=== PATIENT | male | born 1960 | race Caucasian/White ===

== ENCOUNTER 2021-03-04 21:08 | Observation (INO) | payer BC, SELFPAY ==
[2021-03-04 21:09] VITALS: BP 131/76; PULSE 134; RESP 17; TEMP 39.4; O2SAT 97; BMI 23.8
[2021-03-04 21:13] VITALS: BP 131/76; PULSE 134; RESP 17; TEMP 39.4; O2SAT 97
[2021-03-04 21:46] LABS: Absolute Lymphocyte Count 0.41 X10^3/uL (0.83-4.51); Absolute Neutrophil Count 10.5 X10^3/uL (2.0-7.7); Basophil# 0.02 X10^3/uL; Basophil% 0.2 % (0-1); Hematocrit 37.7 % (40-54); Hemoglobin 13.2 g/dL (13.0-16.5); Lymphocyte # 0.41 X10^3/ul (0.83-4.51); Lymphocyte % 3.5 % (19-41); Mean Corpuscular Hgb 30.4 pg (27.0-32.0); Mean Corpuscular Volume 86.9 fL (80-94); Mean Platelet Vol. 8.8 fl (6.2-12.0); Monocyte# 0.72 X10^3/uL; Monocyte% 6.1 % (0-10); NRBC Flagged by Analyzer 0 % (0-5); Neutrophil # 10.46 X10^3/uL (2.7-7.7); Neutrophil % 89.2 % (47-70); POSITIVE DIFFERENTIAL YES; Platelet Count 136 K/mm3 (150-450); RBC Distribution Width CV 13.2 % (11.6-14.6); RBC Distribution Width SD 41.8 fl (35.1-43.9); Red Blood Count 4.34 M/mm3 (4.6-6.2); White Blood Count 11.7 K/mm3 (4.4-11.0)
[2021-03-04 21:49] LABS: Differential Indicated SCAN CRITERIA MET
[2021-03-04 21:54] LABS: Anion Gap 8 (5-15); BUN 12 mg/dL (7-18); BUN/Creat Ratio 18.8 RATIO (10-20); Calcium,Total 8.3 mg/dL (8.5-10.1); Chloride 93 mmol/L (98-107); Creatinine, Serum 0.64 mg/dL (0.70-1.30); EST Glomerular Filtration Rate 136 mL/min (>60); Est Glom Filt Rate - Afr Amer 164 mL/min (>60); Estimated Creatinine Clearance 114.76 ml/min; Glucose 103 mg/dL (74-106); Potassium 3.9 mmol/L (3.5-5.1); Sodium Level 125 mmol/L (136-145)
[2021-03-04 22:08] LABS: Anisocytosis RARE; Platelet Estimate SLT DEC (ADEQ); Red Cell Morphology N CHROM NORMAL (NORM C&C)
[2021-03-04 22:27] LABS: Bacteria 0 SEEN /hpf (None Seen); Mucous, Urine 0 SEEN /hpf (<or=2+); Red Blood Cells-Urine 0 SEEN /hpf (0-5)
--- NOTE | 2021-03-04 22:30 | CT_ITS ---
STUDY: CT ABDOMEN AND PELVIS WITH CONTRAST REASON FOR EXAM: Male, 61 years old. abdominal pain RADIATION DOSAGE (If Supplied By Facility): CTDIvol = ( 8.98 ) mGy, DLP = ( 1033.31 ) mGycm TECHNIQUE: Transaxial images were obtained from the dome of the diaphragm to the symphysis pubis without oral contrast. IV 100mL Isovue-300 was administered. Sagittal and coronal images were reconstructed. Individualized dose optimization techniques were used for this CT. COMPARISON: None. FINDINGS: Calcified granuloma in the right lower lobe. The visualized portions of the heart are within normal limits. There is hepatomegaly with diffuse hepatic enlargement. Lobulated cyst in the right lobe of the liver measuring 2.3 x 1.8 cm. Normal gallbladder and extrahepatic biliary system. Normal spleen. There is diffuse atrophy of the pancreas. Normal bilateral adrenal glands. Punctate bilateral nonobstructing nephroliths. Simple appearing left renal cyst measuring 4.6 x 5 cm. Normal visualized stomach. Normal small intestine. Normal colon. The appendix is visualized and appears normal. Significant fecal retention throughout the colon. Normal abdominal aorta. Normal inferior vena cava. Normal retroperitoneum. Normal urinary bladder. Enlarged prostate with calcifications Normal abdominal wall. Normal osseous structures. CT/Abdomen/Pelvis W IV Cont ONLY IMPRESSION: Significant constipation. Unremarkable appendix. No acute obstruction of the kidneys. Enlarged prostate with calcifications Electronically Signed: Shyam Cohen DO at 1:00 EDT Tel , Service support ,
[2021-03-04 22:31] LABS: Color, Urine Yellow (Yellow); Glucose, Dipstick Normal (Normal); Ketone-Dipstick 50 mg/dl (Negative); Leukocyte Esterase-Dipstick 25 /ul (Negative); Nitrite-Dipstick Negative (Negative); Occult Blood-Urine Negative /ul (Negative); Protein-Dipstick 15 mg/dl (Negative); Urine Bilirubin Dipstick Negative (Negative); Urine Clarity Sl. Cloudy (Clear); Urine Urobilinogen 8 mg/dl (Normal)
--- NOTE | 2021-03-04 22:31 | EDS_ITS ---
HPI HPI - GI History of Present Illness Chief Complaint: Complaint Narrative Narrative: 61-year-old male presenting with fevers for the last 4 days as well as recent history of UTI. He states he was diagnosed with UTI 2 weeks ago. This was by his primary care provider. He states that he was not feeling better and went and saw another physician who prescribed him another antibiotic. He cannot recall either antibiotic. Patient states that he has developed lower abdominal pain and points to the center of his abdomen. He stated that his not having as much dysuria. He does feel generally weak. Patient had not taken anything for fever at he did not know he had a fever. Patient stated that last night he had a little bit of dyspnea but today he does not. He is not have a change in taste or smell. [facility] Medical History Hx of fracture of skull Home Medications meloxicam 15 mg PO DAILY 03/04/21 [History Last Taken Unknown] sulfamethoxazole-trimethoprim 1 tab PO DAILY 03/04/21 [History Last Taken Unknown] tamsulosin 0.4 mg PO DAILY 03/04/21 [History Last Taken Unknown] Allergy/AdvReac Type Severity Reaction Status Date / Time No Known Allergies Allergy Verified 03/04/21 21:13 Social History Smoking Status: Never smoker ROS ROS ED Constitutional Constitutional ED: Reports chills and fever(s) ENT ENT ED: Denies ear pain or rhinorrhea Cardiovascular Cardiovascular: Denies chest pain or palpitations Respiratory/Chest Respiratory/Chest: Denies cough or dyspnea Gastrointestinal Gastrointestinal: Reports abdominal pain; Denies constipation, diarrhea, nausea or vomiting Genitourinary Genitourinary ED: Reports dysuria; Denies hematuria or urinary frequency Musculoskeletal Musculoskeletal: Denies arthralgias or myalgias Integumentary Denies abscess or rash Neurologic Neurologic: Reports headache(s); Denies paresthesias or weakness Psychiatric Psychiatric: Denies anxiety or depression EXAM Physical Exam Const Vital Signs: 03/04/21 21:09 03/04/21 21:13 03/04/21 21:16 Temperature 103 F H 103 F H Temperature Source Oral Oral Pulse Rate 134 H 134 H Respiratory Rate 17 17 Respiratory Effort Normal Non-Labored Blood Pressure 131/76 H 131/76 H Blood Pressure Mean 94 94 Pulse Ox 97 97 Oxygen Delivery Method Room Air Room Air 03/04/21 23:11 03/05/21 00:49 Temperature 98.7 F 98.6 F Temperature Source Oral Oral Pulse Rate 116 H 109 H Respiratory Rate 26 H 26 H Respiratory Effort Blood Pressure 118/62 97/56 L Blood Pressure Mean 80 69 Pulse Ox 97 95 Oxygen Delivery Method Room Air Room Air Positive well nourished HEENT normocephalic and atraumatic Eyes PERRL and EOMs intact bilaterally Resp normal respiratory effort and clear to auscultation bilaterally Cardio regular rhythm Rate: tachycardic GI GI Narrative: Generalized tenderness to palpation. Abdomen nonperitoneal. Palpation: soft Extremity full ROM General Extremety ED: Negative for edema General Extremity: Negative for edema Neuro Sensorium / Orientation: alert and oriented to person Psych mental status grossly normal Skin Lesions: no lesions Rashes: no rashes MDM MDM MDM Narrative Medical decision making narrative: Patient presenting with fever, tachycardia, abdominal pain. He did state that he had some dyspnea last night. Due to SIRS criteria sepsis work-up was obtained. Patient had EKG performed on arrival which was sinus rhythm at 133 bpm without ischemic change as interpreted by myself. Lab work shows a leukocytosis of 11.7. Hemoglobin hematocrit are stable. Patient is lymphopenic. Patient's sodium is 125, potassium 3.9, chloride 93, GFR normal. Lactic acid is 1.0. INR normal. Patient does have a slight bump in his bilirubin at 1.2 with direct bilirubin 0.46. Patient urinalysis is negative for infection. Patient was pancultured and urine cultures are pending. Patient was given Tylenol on arrival and his temperature is now 98.6 his heart rate is down to 109 his blood pressure has dropped to 97/56 from 131/76. His respiratory rate is increased from 17-26. Chest x-ray is pending. Patient will be signed out to incoming ED physician for follow up of chest X-ray. I will get a Covid-19 PCR as well. Patients symptoms are improved however is vital signs are still abnormal. He feels well enough to go home however. Impression: 1. Fever 2. Tachycardia 3. Abdominal pain 4. Leukocytosis Lab Data Attestation: I reviewed the patient's lab results. Labs: Laboratory Results - last 24 hr 03/04/21 03/04/21 03/04/21 21:16 21:20 21:20 WBC 11.7 H RBC 4.34 L Hgb 13.2 Hct 37.7 L MCV 86.9 MCH 30.4 MCHC 35.0 RDW Std Deviation 41.8 RDW Coeff of Kate 13.2 Plt Count 136 L MPV 8.8 Immature Gran % (Auto) 1.000 H Neut % (Auto) 89.2 H Lymph % (Auto) 3.5 L [place] % (Auto) 6.1 Eos % (Auto) 0.0 Baso % (Auto) 0.2 Absolute Neuts (auto) 10.5 H Absolute Lymphs (auto) 0.41 L Nucleated RBC % 0 Differential Comment SEE COMMENT Platelet Estimate SLT DEC RBC Morphology N CHROM Anisocytosis RARE PT INR Sodium 125 L Potassium 3.9 Chloride 93 L Carbon Dioxide 24.0 Anion Gap 8 BUN 12 Creatinine 0.64 L Estim Creat Clear Calc 114.76 Est GFR (MDRD) Af Amer 164 Est GFR (MDRD) Non-Af 136 BUN/Creatinine Ratio 18.8 Glucose 103 Lactic Acid 1.0 Calcium 8.3 L Total Bilirubin Direct Bilirubin AST ALT Alkaline Phosphatase Total Protein Albumin Globulin Urine Color Urine Clarity Urine pH Ur Specific [place] Urine Protein Urine Glucose (UA) Urine Ketones Urine Occult Blood Urine Nitrite Urine Bilirubin Urine Urobilinogen Ur Leukocyte Esterase Urine RBC Urine WBC Ur Squamous Epith Cells Urine Bacteria Urine Mucus 03/04/21 03/04/21 03/04/21 21:20 22:20 22:45 WBC RBC Hgb Hct MCV MCH MCHC RDW Std Deviation RDW Coeff of Kate Plt Count MPV Immature Gran % (Auto) Neut % (Auto) Lymph % (Auto) [place] % (Auto) Eos % (Auto) Baso % (Auto) Absolute Neuts (auto) Absolute Lymphs (auto) Nucleated RBC % Differential Comment Platelet Estimate RBC Morphology Anisocytosis PT 16.6 H INR 1.4 Sodium Potassium Chloride Carbon Dioxide Anion Gap BUN Creatinine Estim Creat Clear Calc Est GFR (MDRD) Af Amer Est GFR (MDRD) Non-Af BUN/Creatinine Ratio Glucose Lactic Acid Calcium Total Bilirubin 1.20 H Direct Bilirubin 0.46 H AST 9 L ALT 16 Alkaline Phosphatase 83 Total Protein 6.0 L Albumin 3.1 L Globulin 2.9 Urine Color Yellow Urine Clarity Sl. Cloudy Urine pH 7.0 Ur Specific [place] 1.010 Urine Protein 15 H Urine Glucose (UA) Normal Urine Ketones 50 H Urine Occult Blood Negative Urine Nitrite Negative Urine Bilirubin Negative Urine Urobilinogen 8 H Ur Leukocyte Esterase 25 H Urine RBC 0 SEEN Urine WBC 0-5 SEEN Ur Squamous Epith Cells 0-5 SEEN Urine Bacteria 0 SEEN Urine Mucus 0 SEEN Radiography Diagnostic Testing: Radiology Impression Abdomen/Pelvis CT 03/04/21 22:30 IMPRESSION: Significant constipation. Unremarkable appendix. No acute obstruction of the kidneys. Enlarged prostate with calcifications Electronically Signed: Shyam Cohen DO at 1:00 EDT Tel , Service support , Discharge Plan Triage Chief Complaint: Complaint Other Complaint: Fever ED Provider: Jose Aguilar Dx/Rx/DC Orders Prescriptions: No Action sulfamethoxazole-trimethoprim 400-80 mg Tablet 1 tab PO DAILY RF: 0 meloxicam 15 mg Tablet 15 mg PO DAILY RF: 0 tamsulosin 0.4 mg Capsule 0.4 mg PO DAILY RF: 0 Primary Care Provider: Mehdi Anderson NP
[2021-03-04 22:48] LABS: Squamous Epithelial Cells - UA 0-5 SEEN /hpf (0-5); White Blood Cells 0-5 SEEN /hpf (0-5)
[2021-03-04 22:59] LABS: International Normalized Ratio 1.4; Prothrombin Time (Protime)PT. 16.6 SECONDS (11.7-14.9)
[2021-03-04] MEDS: 0.9% Normal Saline 1,000 ML 999 ML IV (23:04)
[2021-03-04] MEDS: Acetaminophen 500 MG Tablet 1000 MG PO (23:05)
[2021-03-04 23:08] LABS: AST(SGOT) 9 U/L (15-37); Alanine Aminotransfer ALT/SGPT 16 U/L (16-61); Albumin, Serum 3.1 g/dL (3.2-5.0); Alkaline Phosphatase 83 U/L (45-117); Bilirubin, Direct 0.46 mg/dL (0.00-0.30); Globulin 2.9 g/dL (2.2-4.2)
[2021-03-04 23:11] VITALS: BP 118/62; PULSE 116; RESP 26; TEMP 37.1; O2SAT 97
[2021-03-05] VITALS (26 sets, daily range): BP systolic 91–124; BP diastolic 55–81; PULSE 93–111; RESP 14–32; TEMP 36.5–37.1; O2SAT 95–100; BMI 22.9
--- NOTE | 2021-03-05 01:15 | RAD_ITS ---
STUDY: X-RAY CHEST REASON FOR EXAM: Male, 61 years old. fever TECHNIQUE: Single AP portable view of the chest. COMPARISON: None. FINDINGS: Calcified granuloma in the right midlung field The lungs are clear and expanded. There is no demonstrated pleural abnormality. Normal size heart. Normal mediastinum and marlene. Normal visualized pulmonary arteries. Normal visualized aortic arch and descending thoracic aorta. Normal visualized thoracic spine. Normal visualized ribs, clavicles, and shoulders. There is no demonstrated abnormality of the visualized soft tissue structures of the upper abdomen. RAD/Chest 1 View (Portable) IMPRESSION: Normal x-ray examination of the chest. Electronically Signed: Shyam Cohen DO at 2:15 EDT Tel , Service support ,
[2021-03-05] MEDS: 0.9% Normal Saline 1,000 ML 999 ML IV (02:00)
--- NOTE | 2021-03-05 03:11 | HP.PCM.HOS_ITS ---
HPI - General General Date of Admission: 03/05/21 Date of Service: 03/05/21 Chief Complaint: fever HPI Narrative NEERU GIBSON, is a 61 M who presents presents with fever. Patient was having fever at home but is also noted to be tachycardic. Is been going on for couple days. Had not been feeling well. Patient is not very forthcoming historian and was woken up so he states that he cannot recall why he is specifically here so much the history is obtained through the emergency room physician. Patient was having a fever when he initially presented at 39.4 Celsius but that went down to 37 and he was notably tachycardic when initially presented with a heart rate in the 130s and was tachypneic at 26. His urinalysis was unremarkable for infection but did show positive ketones. [facility] Medical History Hx of fracture of skull Home Medications meloxicam 15 mg PO DAILY 03/04/21 [History Last Taken Unknown] sulfamethoxazole-trimethoprim 1 tab PO DAILY 03/04/21 [History Last Taken Unknown] tamsulosin 0.4 mg PO DAILY 03/04/21 [History Last Taken Unknown] Allergy/AdvReac Type Severity Reaction Status Date / Time No Known Allergies Allergy Verified 03/04/21 21:13 Social History (Updated 03/05/21 @ 03:[address] Amadeo Rucker DO) Smoking Status: Never smoker alcohol intake: never substance use type: does not use ROS ROS Narrative Fever. Tachycardia. Did have abdominal pain. Did have still does have some dysuria. All review of systems were negative except as mentioned above in the history of present illness and the other review of systems. Constitutional Constitutional: Reports chills, fever(s) and malaise; Denies anorexia or change in weight Eyes Eyes: Denies blurry vision or change in vision Cardiovascular Cardiovascular: Reports chest pain Respiratory/Chest Respiratory/Chest: Denies cough or shortness of breath at rest Gastrointestinal Gastrointestinal: Reports abdominal pain; Denies diarrhea Genitourinary Genitourinary: Reports burning urination Vital Signs Vital Signs Vital Signs: 03/04/21 21:09 03/04/21 21:13 03/04/21 21:16 Temperature 39.4 C H 39.4 C H Temperature Source Oral Oral Pulse Rate 134 H 134 H Respiratory Rate 17 17 Respiratory Effort Normal Non-Labored Blood Pressure 131/76 H 131/76 H Blood Pressure Mean 94 94 Pulse Ox 97 97 Oxygen Delivery Method Room Air Room Air 03/04/21 23:11 03/05/21 00:49 03/05/21 01:57 Temperature 37.1 C 37.0 C 37.0 C Temperature Source Oral Oral Oral Pulse Rate 116 H 109 H 104 H Respiratory Rate 26 H 26 H 24 H Respiratory Effort Blood Pressure 118/62 97/56 L 91/58 L Blood Pressure Mean 80 69 69 Pulse Ox 97 95 97 Oxygen Delivery Method Room Air Room Air Room Air 03/05/21 02:42 Temperature 37.1 C Temperature Source Oral Pulse Rate 93 Respiratory Rate 22 H Respiratory Effort Blood Pressure 97/70 Blood Pressure Mean 79 Pulse Ox 96 Oxygen Delivery Method Room Air Weight Weight: 69 kg Body Mass Index (BMI) 23.8 Physical Exam Const alert Constitutional Narrative: Slightly groggy but that was just woken up. HEENT normocephalic HEENT Narrative: Dry mucous membranes Eyes PERRL Neck no lymphadenopathy Resp normal respiratory effort, no use of accessory muscles and clear to auscultation bilaterally Cardio regular rate, regular rhythm, S1 normal heart sound and S2 normal heart sound GI normal to inspection, nondistended, normoactive bowel sounds GI Narrative: Slightly tender Extremity normal to inspection, full ROM and no clubbing, cyanosis or edema Skin no rashes or lesions noted, no wounds, skin turgor normal and no jaundice Neuro moves all extremities and no focal motor deficits Neuro Narrative: No clonus Psych Psych Narrative: Flat affect Results Lab / Micro Data Result Diagrams: 03/04/21 21:20 03/04/21 21:20 Labs: Laboratory Results - last 24 hr 03/04/21 03/04/21 03/04/21 21:16 21:20 21:20 WBC 11.7 H RBC 4.34 L Hgb 13.2 Hct 37.7 L MCV 86.9 MCH 30.4 MCHC 35.0 RDW Std Deviation 41.8 RDW Coeff of Kate 13.2 Plt Count 136 L MPV 8.8 Immature Gran % (Auto) 1.000 H Neut % (Auto) 89.2 H Lymph % (Auto) 3.5 L [place] % (Auto) 6.1 Eos % (Auto) 0.0 Baso % (Auto) 0.2 Absolute Neuts (auto) 10.5 H Absolute Lymphs (auto) 0.41 L Nucleated RBC % 0 Differential Comment SEE COMMENT Platelet Estimate SLT DEC RBC Morphology N CHROM Anisocytosis RARE PT INR Sodium 125 L Potassium 3.9 Chloride 93 L Carbon Dioxide 24.0 Anion Gap 8 BUN 12 Creatinine 0.64 L Estim Creat Clear Calc 114.76 Est GFR (MDRD) Af Amer 164 Est GFR (MDRD) Non-Af 136 BUN/Creatinine Ratio 18.8 Glucose 103 Lactic Acid 1.0 Calcium 8.3 L Total Bilirubin Direct Bilirubin AST ALT Alkaline Phosphatase Total Protein Albumin Globulin Urine Color Urine Clarity Urine pH Ur Specific [place] Urine Protein Urine Glucose (UA) Urine Ketones Urine Occult Blood Urine Nitrite Urine Bilirubin Urine Urobilinogen Ur Leukocyte Esterase Urine RBC Urine WBC Ur Squamous Epith Cells Urine Bacteria Urine Mucus 03/04/21 03/04/21 03/04/21 21:20 22:20 22:45 WBC RBC Hgb Hct MCV MCH MCHC RDW Std Deviation RDW Coeff of Kate Plt Count MPV Immature Gran % (Auto) Neut % (Auto) Lymph % (Auto) [place] % (Auto) Eos % (Auto) Baso % (Auto) Absolute Neuts (auto) Absolute Lymphs (auto) Nucleated RBC % Differential Comment Platelet Estimate RBC Morphology Anisocytosis PT 16.6 H INR 1.4 Sodium Potassium Chloride Carbon Dioxide Anion Gap BUN Creatinine Estim Creat Clear Calc Est GFR (MDRD) Af Amer Est GFR (MDRD) Non-Af BUN/Creatinine Ratio Glucose Lactic Acid Calcium Total Bilirubin 1.20 H Direct Bilirubin 0.46 H AST 9 L ALT 16 Alkaline Phosphatase 83 Total Protein 6.0 L Albumin 3.1 L Globulin 2.9 Urine Color Yellow Urine Clarity Sl. Cloudy Urine pH 7.0 Ur Specific [place] 1.010 Urine Protein 15 H Urine Glucose (UA) Normal Urine Ketones 50 H Urine Occult Blood Negative Urine Nitrite Negative Urine Bilirubin Negative Urine Urobilinogen 8 H Ur Leukocyte Esterase 25 H Urine RBC 0 SEEN Urine WBC 0-5 SEEN Ur Squamous Epith Cells 0-5 SEEN Urine Bacteria 0 SEEN Urine Mucus 0 SEEN Micro: Microbiology 03/04/21 23:10 SARS-CoV-2 Antigen (Rapid) - Final Mucosa - Nose EKG Initial EKG: Attestation: I personally reviewed and interpreted this EKG as follows: Prior EKG tracings: available for review EKG Rhythm Intrepretation: Sinus Tachycardia Radiology Impression Abdomen/Pelvis CT 03/04/21 22:30 IMPRESSION: Significant constipation. Unremarkable appendix. No acute obstruction of the kidneys. Enlarged prostate with calcifications Electronically Signed: Shyam Cohen DO at 1:00 EDT Tel , Service support , Chest X-Ray 03/05/21 01:15 IMPRESSION: Normal x-ray examination of the chest. Electronically Signed: Shyam Cohen at 2:15 EDT Tel , Service support , Assessment & Plan Assessment/Plan (1) Hyponatremia: (2) SIRS (systemic inflammatory response syndrome): (3) Ketoacidosis: PLAN: 1. Hyponatremia * Suspect probably with volume depletion as patient clinically appears dry * IV fluids and reevaluate * Will check a TSH * If persists, consider checking a random cortisol and urine sodium osmolality and urine sodium for evaluation of SIADH 2. Systemic and plantar response syndrome * Patient had fever which is better but though patient did receive acetaminophen in the emergency room * He was tachycardic and tachypneic which are doing better at this time * Urine looks good. Patient states that he has been on antibiotics for over a week now * I am going to discontinue the Bactrim as he is already been treated for a week and his urine shows no sign of infection * Blood cultures drawn in the emergency room and are pending * Rapid Covid was negative PCR still pending * Patient is not hypoxic 3. Ketoacidosis * Noted in his urine * Anion gap is only 8 * Blood sugar is normal therefore this is non-DKA * Suspects may be related with starvation ketosis 4. Elevated bilirubin * Slight elevation * CT abdomen pelvis was unremarkable * If bilirubin continues to trend up consider checking ultrasound of the gallbladder 5. VTE prophylaxis: Patient observation status at this point time and therefore low risk at this point. If hospitalization went up being protracted then consider adding VTE prophylaxis. Charges/Coding Visit Charges OBSV E&M: 28089 Initial observation care L3
[2021-03-05] MEDS: 0.9% Saline Lock 10 ML Syringe IV (03:49)
[2021-03-05] MEDS: 0.9% Normal Saline 1,000 ML 150 ML IV ×2 (03:50→11:08)
[2021-03-05 03:56] LABS: Troponin-I HS 145.4 pg/mL (3.0-78.5)
--- NOTE | 2021-03-05 04:03 | NURSING ---
Dr. Rucker notified of critical troponin of 145.44. He wants pt transferred to PCU. [facility] nursing corrections unit supervisor aware and will obtain bed assignment.
--- NOTE | 2021-03-05 04:22 | ECHOD_ITS ---
Reason For Study: ELEVATED TROPONINS Procedure This was a 2D Doppler, Color Flow transthoracic echocardiogram. Exam performed portable in patient room. Left Ventricle Normal left ventricle. The estimated ejection fraction is EF calcuated 66% %. Right Ventricle Normal right ventricle. Normal systolic function. Atria Normal left atrium. Normal right atrium. Mitral Valve The mitral valve is structurally normal. No prolapse or stenosis seen. Trivial mitral valve insufficiency. Tricuspid Valve Normal tricuspid valve. No tricuspid valve insufficiency. Aortic Valve Normal aortic valve. Pulmonic Valve Normal pulmonic valve. Great Vessels Normal aortic root. Pericardium/Pleural No pericardial effusion. MMode/2D Measurements & Calculations LVIDd: 4.8 cm IVSd: 1.5 cm LVOT diam: 2.3 cm LVIDs: 3.1 cm LVPWd: 1.3 cm LVOT area: 4.3 cm2 RVDd: 3.6 cm FS: 34.7 % Ao root diam: 3.2 cm LAV(MOD-bp): 76.8 ml LVAd ap4: 28.0 cm2 LAV(MOD-bp) Indexed: 43.3 ml/m2 LVLd ap4: 8.3 cm LAV(MOD-sp2): 71.1 ml EDV(MOD-sp4): 79.6 ml LAV(MOD-sp4): 72.3 ml EDV(sp4-el): 80.5 ml LVAs ap4: 13.0 cm2 LVLs ap4: 5.4 cm ESV(MOD-sp4): 26.4 ml ESV(sp4-el): 26.5 ml EF(MOD-sp4): 66.8 % EF(sp4-el): 67.1 % LVAd ap2: 28.9 cm2 SV(MOD-sp4): 53.1 ml SV(MOD-sp2): 60.7 ml LVLd ap2: 7.8 cm EDV(MOD-sp2): 89.1 ml EDV(sp2-el): 91.5 ml LVAs ap2: 14.3 cm2 LVLs ap2: 5.9 cm ESV(MOD-sp2): 28.4 ml ESV(sp2-el): 29.1 ml EF(MOD-sp2): 68.1 % SV(sp4-el): 54.0 ml LA dimension(2D): 4.8 cm LA A4 area: 21.6 cm2 RA A4 area: 18.8 cm2 Doppler Measurements & Calculations MV E max irving: 92.5 cm/sec Lat Peak E' [place]: 7.2 cm/sec Med Peak E' [place]: 19.6 cm/sec MV A max irving: 137.0 cm/sec E/E' lat: 12.8 E/E' med: 4.7 MV E/A: 0.68 Ao V2 max: 198.6 cm/sec LV V1 max: 180.6 cm/sec SV(LVOT): 106.7 ml Ao max P.8 mmHg LV V1 max P.0 mmHg Ao V2 mean: 143.0 cm/sec LV V1 mean P.9 mmHg Ao mean P.0 mmHg LV V1 mean: 125.9 cm/sec Ao V2 VTI: 28.8 cm LV V1 VTI: 24.7 cm TI(I,D): 3.7 cm2 TI(V,D): 3.9 cm2 PA V2 max: 151.3 cm/sec ECHO/Echo Complete Interpretation Summary The estimated ejection fraction is EF calcuated 66% . Ordering Physician: Amadeo Rucker Referring Physician: Mihir Anderson Performed By: Mylene Breen RDCS, RVT
--- NOTE | 2021-03-05 04:22 | EKG12_ITS ---
Test Reason : DYSRHYTHMIA Blood Pressure : / mmHG Vent. Rate : 133 BPM Atrial Rate : 133 BPM P-R Int : 156 ms QRS Dur : 098 ms QT Int : 286 ms P-R-T Axes : 036 079 008 degrees QTc Int : 425 ms Sinus tachycardia Possible Inferior infarct , age undetermined Abnormal ECG Confirmed by JANELLE BRANDON, SUKI ([id number]), video tape editor AFSHAN ROSALES ([id number]) on 03/05/2021 1:02:14 PM Referred By: BRYON Confirmed By:SUKI LUIS MD
[2021-03-05] MEDS: Aspirin 81 MG TAB.CHEW 324 MG PO (05:16)
[2021-03-05] MEDS: Enoxaparin 80 MG/0.8 ML Syringe 70 MG SC (05:16)
--- NOTE | 2021-03-05 05:19 | EKG12_ITS ---
Test Reason : Blood Pressure : / mmHG Vent. Rate : 102 BPM Atrial Rate : 102 BPM P-R Int : 154 ms QRS Dur : 098 ms QT Int : 326 ms P-R-T Axes : 025 051 012 degrees QTc Int : 424 ms Sinus tachycardia Otherwise normal ECG When compared with ECG of 05-MAR-2021 05:19, No significant change was found Confirmed by JANELLE BRANDON, SUKI ([id number]), assistant editor AFSHAN ROSALES ([id number]) on 03/09/2021 9:19:01 AM Referred By: HAYDEE Confirmed By:SUKI LIUS MD
[2021-03-05 05:47] LABS: International Normalized Ratio 1.5; Prothrombin Time (Protime)PT. 17.7 SECONDS (11.7-14.9)
[2021-03-05 05:50] LABS: D-Dimer Quantitative (DVT/PE) 0.67 FEU/ug/m (0.27-0.49)
[2021-03-05 06:03] LABS: Absolute Neutrophil Count 7.6 X10^3/uL (2.0-7.7); Basophil# 0.02 X10^3/uL; Basophil% 0.2 % (0-1); Hematocrit 35.8 % (40-54); Hemoglobin 12.2 g/dL (13.0-16.5); Lymphocyte % 6.5 % (19-41); Mean Corp Hgb Conc 34.1 g/dL (32-36); Mean Corpuscular Hgb 30.1 pg (27.0-32.0); Mean Corpuscular Volume 88.4 fL (80-94); Monocyte# 0.92 X10^3/uL; Monocyte% 9.9 % (0-10); NRBC Flagged by Analyzer 0 % (0-5); Neutrophil # 7.63 X10^3/uL (2.7-7.7); Neutrophil % 82.5 % (47-70); POSITIVE DIFFERENTIAL YES; Platelet Count 131 K/mm3 (150-450); RBC Distribution Width CV 13.3 % (11.6-14.6); RBC Distribution Width SD 43.4 fl (35.1-43.9); Red Blood Count 4.05 M/mm3 (4.6-6.2); White Blood Count 9.3 K/mm3 (4.4-11.0)
[2021-03-05 06:10] LABS: Troponin-I HS 130.6 pg/mL (3.0-78.5)
[2021-03-05 06:22] LABS: Differential Indicated SCAN CRITERIA MET
[2021-03-05 06:25] LABS: AST(SGOT) 8 U/L (15-37); Alanine Aminotransfer ALT/SGPT 14 U/L (16-61); Albumin, Serum 2.6 g/dL (3.2-5.0); Alkaline Phosphatase 74 U/L (45-117); Anion Gap 7 (5-15); BUN 8 mg/dL (7-18); BUN/Creat Ratio 15.1 RATIO (10-20); Chloride 103 mmol/L (98-107); Creatinine, Serum 0.53 mg/dL (0.70-1.30); EST Glomerular Filtration Rate 169 mL/min (>60); Est Glom Filt Rate - Afr Amer 204 mL/min (>60); Estimated Creatinine Clearance 138.57 ml/min; Globulin 2.7 g/dL (2.2-4.2); Glucose 106 mg/dL (74-106); Potassium 3.8 mmol/L (3.5-5.1); Protein, Total 5.3 g/dL (6.4-8.2); Sodium Level 133 mmol/L (136-145); Thyroid Stim Hormone (TSH) 4.66 uIU/mL (0.358-3.74)
[2021-03-05 06:35] LABS: Atypical Lymphocyte RARE %; Differential Comment SCANNED
[2021-03-05 10:30] LABS: Troponin-I HS 156.4 pg/mL (3.0-78.5)
[2021-03-05] MEDS: Tamsulosin HCl 0.4 MG Capsule PO (10:42)
--- NOTE | 2021-03-05 11:58 | NT.THERAPY_ITS ---
Medical Nutrition Therapy - History Current diet/nutrition support order:: Regular. 120 ml Ensure Enlive 4x/day - Anthropometric Measurements Height:: 5 ft 7 in Weight:: 66.5 kg Body Mass Index (BMI):: 22.9 - Relevant Labs Relevant Labs:: WBC 11.7 K/mm3 (4.4-11.0) H 03/04/21 21:20 RBC 4.05 M/mm3 (4.6-6.2) L 03/05/21 05:14 Hgb 12.2 g/dL (13.0-16.5) L 03/05/21 05:14 Hct 35.8 % (40-54) L 03/05/21 05:14 Plt Count 131 K/mm3 (150-450) L 03/05/21 05:14 Immature Gran % (Auto) 1.000 % (0.0-0.9) H 03/04/21 21:20 Neut % (Auto) 82.5 % (47-70) H 03/05/21 05:14 Lymph % (Auto) 6.5 % (19-41) L 03/05/21 05:14 Absolute Neuts (auto) 10.5 X10^3/uL (2.0-7.7) H 03/04/21 21:20 Absolute Lymphs (auto) 0.60 X10^3/uL (0.83-4.51) L 03/05/21 05:14 PT 17.7 SECONDS (11.7-14.9) H 03/05/21 05:24 D-Dimer Quant (PE/DVT) 0.67 FEU/ug/m (0.27-0.49) H* 03/05/21 05:24 Sodium 133 mmol/L (136-145) L 03/05/21 05:24 Chloride 93 mmol/L (98-107) L 03/04/21 21:20 Creatinine 0.53 mg/dL (0.70-1.30) L 03/05/21 05:24 Calcium 8.0 mg/dL (8.5-10.1) L 03/05/21 05:24 Total Bilirubin 1.20 mg/dL (0.20-1.00) H 03/04/21 21:20 Direct Bilirubin 0.46 mg/dL (0.00-0.30) H 03/04/21 21:20 AST 8 U/L (15-37) L 03/05/21 05:24 ALT 14 U/L (16-61) L 03/05/21 05:24 Troponin I High Sens 156.4 pg/mL (3.0-78.5) H* 03/05/21 09:25 Total Protein 5.3 g/dL (6.4-8.2) L 03/05/21 05:24 Albumin 2.6 g/dL (3.2-5.0) L 03/05/21 05:24 TSH 4.66 uIU/mL (0.358-3.74) H 03/05/21 05:24 - Assessment Food and Nutrient Intake: Pt states appetite almost nonexistant x 2 wks d/t U TI. PO intake at breakfast today <50% w/ pt only eating 2 pieces of toast. Pt agreeable to ONS w/ medpass for increased nutrition if consumed. UBW: 72.575 kg - wt loss of 8.4% x 2 wks (sig for malnutrition) - Nutrition Diagnosis: Clinical Problem Acute Disease or Injury Related Malnutrition Clinical Problem - Etiology: related to nonexistant appetite due to UTI Clinical Problem - Signs/Symptoms: as evidenced by and eating <50% of meals and 8.4% wt loss x 2 wks prior to admisision - noted fat/muscle loss (orbi calixto/temporal regions). Status: Active Problem - Protein Calorie Malnutrition Evidence of Malnutrition Exists: Yes Severe Protein Calorie Malnutrition:: Acute Illness/Injury - Nutrition Intervention Nutrition Prescription: [id number] aparna/day (RMR x 1.2-1.3). 66-79 gm pro/day (1- 1.2 gm/kg). 2085 ml fluid/day (per ASPEN guidelines) - Food / Nutrient Delivery Interventions Summary of nutrition intervention:: Provide oral nutrition supplement Nutrition support ordered as / adjusted to:: Rec continue liberal Regular diet w/ Oral Nutrition Supplement at medpass. Will provide ensure pudding or magic cup w/ lunch and dinner for increased nutrition if consumed. Nutrition education provided?: No - MNT Monitoring Active Nutrition Patient: Yes Nutrition Status: Requires Follow Up 3-5 Days - please call RD/LD if questions/concerns at [phone]
[2021-03-05 12:09] LABS: Partial Thromboplast Time 37.3 Seconds (24.1-36.2)
--- NOTE | 2021-03-05 13:07 | PCIREPORT_ITS ---
PCI Cardiac Cath Report PCI Report: Procedure performed; 1. Successful PTCA of mid LAD stent stenosis with haziness Using NC balloon 3 x 30 mm, with reduction of the stenosis from 70% to 20% and maintenance of JUAN FRANCISCO-3 flow in the LAD. 2. Selective left common femoral artery angiography and hemostasis to be maintained with manual pressure. Preprocedure diagnosis; 61-year-old patient with extensive cardiac history with history of severe ischemic cardiomyopathy SP ICD implant, has CABG/coronary bypass surgery in [place] with occluded graft This presentation with symptoms of chest pain some radiation to the left arm patient continues to smoke and he had elevated high sensitive troponin and treated as non-ST elevation RI. Underwent today current angiography by his primary food trades assistants Dr. Kulkarni Showed left main has nonobstructive atherosclerosis, he has a large and long segment of stent to the entire LAD from proximal to the distal with haziness noted in the mid portion of the stent at the site of sidebranch/diagonal The left circumflex stent is patent, and the RCA is occluded from prior, LAWRENCE to LAD is occluded from prior cardiac catheterization. Consent; Risk and benefit of the procedure explained detail to the patient elected to proceed informed consent obtained. Approach; Patient had peripheral vascular disease, access from the left femoral artery by Dr. Kulkarni, exchanged for left common femoral artery sheath Interventional equipment; 1. 6 Gibraltarian 3.5 EBU guide catheter 2. 0.014 run-through extra floppy 180 cm straight wire 3. NC Emerge MR 3 x 30 mm balloon. Procedure in detail; Angiographic view of cardiac catheterization reviewed and discussed with the primary food trades assistants, We proceed with a 6 Gibraltarian 3.5 EBU guide catheter advanced ascending aorta and cannulated the left main without difficulty. Then will proceed with the run-through wire across the lesion in the LAD stent. Patient was given 180 mg of Brilinta and was given 7000 IU of heparin, then will proceed with balloon dilatation using the 3 x 30 mm NC balloon And we achieve an excellent result with maintenance of JUAN FRANCISCO III flow to the LAD. Intracoronary nitroglycerin is used and ACT level was acceptable. Conclusion; Successful PTCA of mid LAD stent using NC balloon Recommendation; 1. Patient advised cessation of smoking due to the risk of in-stent thrombosis and risk of in-stent stenosis 2. Patient is started on dual antiplatelet therapy and change from Plavix to Brilinta/aspirin for 1 year 3. Patient will follow up with the primary food trades assistants Dr. Kulkarni for medical management 4. If he had any further episodes of in-stent restenosis of this long segment of his stent he may need Brachytherapy. 5. We will maximize medical therapy/GDMT 6. Hemostasis will be maintained with manual pressure to the left common femoral artery area. Tyson Leos MD,FACC,[facility]
[2021-03-05] MEDS: Metoprolol Tartrate 25 MG Tablet PO (15:00)
[2021-03-05] MEDS: HEPARIN/D5w 25,000 UNITS 25,000 UNITS/250 ML IV.SOLN. 10 UNITS IV (15:01)
--- NOTE | 2021-03-05 15:06 | CASEMGMT ---
CYNDEE SANFORD NOTE: Insurance review for hospitals In-network with [employer] if transfer is recommended is as follows: [facility], [place], [facility], [facility], [facility], [facility], [facility] ([facility]), and . Leyla QUINONEZN RN CM
--- NOTE | 2021-03-05 15:37 | CM.ED ---
SW Note SW responded to stroke alert. No family present. Sugar STROUD
--- NOTE | 2021-03-05 15:39 | CT_ITS ---
STUDY: CT HEAD STROKE PROTOCOL W/O CONTRAST INJECTION REASON FOR EXAM: Male, 61 years old. Stroke RADIATION DOSAGE (If Supplied By Facility): CTDIvol = ( ) mGy, DLP = ( ) mGycm TECHNIQUE: Transaxial CT imaging of the brain was performed without administration of intravenous contrast material. Individualized dose optimization techniques were used for this CT. COMPARISON: No relevant priors. FINDINGS: Normal soft tissue structures. Normal calvarium. Normal size ventricles and extra-axial spaces for the patient''s age. Normal white matter tracts of the cerebral hemispheres. Normal basal ganglia and thalami. Normal brainstem. Normal cerebellum. Serpiginous areas of increased attenuation within sulci of the right occipital lobe worrisome for acute subarachnoid hemorrhage. And cephalization the posterior left temporal lobe consistent with a chronic infarct. Normal visualized paranasal sinuses. ASPECT score: CT/STROKE Brain/Head without Cont IMPRESSION: Positive for acute subarachnoid hemorrhage in sulci of the right occipital lobe. N.B. : The above Results were Read Back by Mehdi Valencia MD to [facility] and understanding confirmed on 03/05/2021 16:06:04 (ET). Electronically Signed: Mehdi Valencia MD at 16:07 EDT Tel , Service support ,
[2021-03-05 15:41] LABS: Bedside Glucose 96 mg/dL (70-110)
--- NOTE | 2021-03-05 16:19 | CON.PCM.CA_ITS ---
Assessment & Plan Assessment/Plan (1) Hyponatremia: (2) SIRS (systemic inflammatory response syndrome): PLAN: Patient is 7-year-old who presented with fever tachycardia tachypnea abdominal pain and noted he had elevated cardiac biomarkers with elevated serum troponin. Started on treatment with aspirin Lovenox which was changed to heparin Review of the cardiac evaluation he had an EKG, series of high sensitive tropo miguel and echocardiogram Cardiac exam essentially normal Assessment and plan recommendation 1. 2 repeat EKG in the morning as well as serum troponin 2. His echocardiogram showed LV function is preserved 3. There unlikely symptoms are cardiac in origin and will treat conservatively And once he is stable to evaluate further with nuclear stress test. 4. We will defer to the medical team to manage the other medical problems with electrolyte abnormality hyponatremia UTI and ketoacidosis. (3) Ketoacidosis: HPI Consult Data Date of Consult: 03/05/21 HPI Narrative Reason for Consultation: Cardiac consultation for patient with , elevated High sensitive troponin HPI Narrative: NEERU GIBSON, is a 61 M who presents COUNT INCLUDES THE [facility] Medical History (Updated 03/05/21 @ 16:29 by Ekta Pickett) Hx of fracture of skull Hypertension Home Medications meloxicam 15 mg PO DAILY 03/04/21 [History Last Taken 03/04/21 07:00] sulfamethoxazole-trimethoprim 1 tab PO DAILY 03/04/21 [History Last Taken 03/04/21 07:00] tamsulosin 0.4 mg PO DAILY 03/04/21 [History Last Taken 03/04/21 07:00] Allergy/AdvReac Type Severity Reaction Status Date / Time No Known Allergies Allergy Verified 03/04/21 21:13 Social History (Updated 03/05/21 @ 03:[address] Amadeo Rucker, ) Smoking Status: Never smoker alcohol intake: never substance use type: does not use Physical Exam Narrative Bedside examination he was alert orientated Cardiovascular exam S1-S2 is regular there is no murmur Chest examination clear to auscultation Examination lower extremity no clubbing no cyanosis no lower extremity edema. Objective Data Vital Signs: Vital Signs Temp Pulse Resp BP Pulse Ox 98.0 F 100 15 116/74 99 03/05/21 14:30 03/05/21 15:35 03/05/21 15:35 03/05/21 15:35 03/05/21 15:35 Oxygen Delivery Method Room Air Weight: 146 lb 9.718 oz Body Mass Index (BMI) 22.9 Intake & Output: Intake and Output for Last 24 Hours 03/03/21 03/04/21 03/05/21 23:59 23:59 23:59 Intake Total 3240 / 3240 Balance 3240 / 3240 Lab / Micro Data Result Diagrams: 03/05/21 05:14 03/05/21 05:24 Labs: Laboratory Results - last 24 hr 03/04/21 03/04/21 03/04/21 21:16 21:20 21:20 WBC 11.7 H RBC 4.34 L Hgb 13.2 Hct 37.7 L MCV 86.9 MCH 30.4 MCHC 35.0 RDW Std Deviation 41.8 RDW Coeff of Kate 13.2 Plt Count 136 L MPV 8.8 Immature Gran % (Auto) 1.000 H Neut % (Auto) 89.2 H Lymph % (Auto) 3.5 L [place] % (Auto) 6.1 Eos % (Auto) 0.0 Baso % (Auto) 0.2 Absolute Neuts (auto) 10.5 H Absolute Lymphs (auto) 0.41 L Nucleated RBC % 0 Differential Comment SEE COMMENT Atypical Lymphocytes Platelet Estimate SLT DEC RBC Morphology N CHROM Anisocytosis RARE PT INR APTT D-Dimer Quant (PE/DVT) Sodium 125 L Potassium 3.9 Chloride 93 L Carbon Dioxide 24.0 Anion Gap 8 BUN 12 Creatinine 0.64 L Estim Creat Clear Calc 114.76 Est GFR (MDRD) Af Amer 164 Est GFR (MDRD) Non-Af 136 BUN/Creatinine Ratio 18.8 Glucose 103 Lactic Acid 1.0 Calcium 8.3 L Total Bilirubin Direct Bilirubin AST ALT Alkaline Phosphatase Troponin I High Sens Total Protein Albumin Globulin Albumin/Globulin Ratio TSH Urine Color Urine Clarity Urine pH Ur Specific Jenkins Urine Protein Urine Glucose (UA) Urine Ketones Urine Occult Blood Urine Nitrite Urine Bilirubin Urine Urobilinogen Ur Leukocyte Esterase Urine RBC Urine WBC Ur Squamous Epith Cells Urine Bacteria Urine Mucus COVID-19 (NAM) POC Glucose 03/04/21 03/04/21 03/04/21 21:20 22:20 22:45 WBC RBC Hgb Hct MCV MCH MCHC RDW Std Deviation RDW Coeff of Kate Plt Count MPV Immature Gran % (Auto) Neut % (Auto) Lymph % (Auto) [place] % (Auto) Eos % (Auto) Baso % (Auto) Absolute Neuts (auto) Absolute Lymphs (auto) Nucleated RBC % Differential Comment Atypical Lymphocytes Platelet Estimate RBC Morphology Anisocytosis PT 16.6 H INR 1.4 APTT D-Dimer Quant (PE/DVT) Sodium Potassium Chloride Carbon Dioxide Anion Gap BUN Creatinine Estim Creat Clear Calc Est GFR (MDRD) Af Amer Est GFR (MDRD) Non-Af BUN/Creatinine Ratio Glucose Lactic Acid Calcium Total Bilirubin 1.20 H Direct Bilirubin 0.46 H AST 9 L ALT 16 Alkaline Phosphatase 83 Troponin I High Sens Total Protein 6.0 L Albumin 3.1 L Globulin 2.9 Albumin/Globulin Ratio TSH Urine Color Yellow Urine Clarity Sl. Cloudy Urine pH 7.0 Ur Specific Jenkins 1.010 Urine Protein 15 H Urine Glucose (UA) Normal Urine Ketones 50 H Urine Occult Blood Negative Urine Nitrite Negative Urine Bilirubin Negative Urine Urobilinogen 8 H Ur Leukocyte Esterase 25 H Urine RBC 0 SEEN Urine WBC 0-5 SEEN Ur Squamous Epith Cells 0-5 SEEN Urine Bacteria 0 SEEN Urine Mucus 0 SEEN COVID-19 (NAM) POC Glucose 03/05/21 03/05/21 03/05/21 01:40 03:25 05:14 WBC 9.3 RBC 4.05 L Hgb 12.2 L Hct 35.8 L MCV 88.4 MCH 30.1 MCHC 34.1 RDW Std Deviation 43.4 RDW Coeff of Kate 13.3 Plt Count 131 L MPV 9.0 Immature Gran % (Auto) 0.900 Neut % (Auto) 82.5 H Lymph % (Auto) 6.5 L [place] % (Auto) 9.9 Eos % (Auto) 0.0 Baso % (Auto) 0.2 Absolute Neuts (auto) 7.6 Absolute Lymphs (auto) 0.60 L Nucleated RBC % 0 Differential Comment SCANNED Atypical Lymphocytes RARE Platelet Estimate RBC Morphology Anisocytosis PT INR APTT D-Dimer Quant (PE/DVT) Sodium Potassium Chloride Carbon Dioxide Anion Gap BUN Creatinine Estim Creat Clear Calc Est GFR (MDRD) Af Amer Est GFR (MDRD) Non-Af BUN/Creatinine Ratio Glucose Lactic Acid Calcium Total Bilirubin Direct Bilirubin AST ALT Alkaline Phosphatase Troponin I High Sens 145.4 H* Total Protein Albumin Globulin Albumin/Globulin Ratio TSH Urine Color Urine Clarity Urine pH Ur Specific Jenkins Urine Protein Urine Glucose (UA) Urine Ketones Urine Occult Blood Urine Nitrite Urine Bilirubin Urine Urobilinogen Ur Leukocyte Esterase Urine RBC Urine WBC Ur Squamous Epith Cells Urine Bacteria Urine Mucus COVID-19 (NAM) Not Detected POC Glucose 03/05/21 03/05/21 03/05/21 05:24 05:24 05:24 WBC RBC Hgb Hct MCV MCH MCHC RDW Std Deviation RDW Coeff of Kate Plt Count MPV Immature Gran % (Auto) Neut % (Auto) Lymph % (Auto) [place] % (Auto) Eos % (Auto) Baso % (Auto) Absolute Neuts (auto) Absolute Lymphs (auto) Nucleated RBC % Differential Comment Atypical Lymphocytes Platelet Estimate RBC Morphology Anisocytosis PT 17.7 H INR 1.5 APTT D-Dimer Quant (PE/DVT) 0.67 H* Sodium 133 L Potassium 3.8 Chloride 103 Carbon Dioxide 23.0 Anion Gap 7 BUN 8 Creatinine 0.53 L Estim Creat Clear Calc 138.57 Est GFR (MDRD) Af Amer 204 Est GFR (MDRD) Non-Af 169 BUN/Creatinine Ratio 15.1 Glucose 106 Lactic Acid Calcium 8.0 L Total Bilirubin 0.90 Direct Bilirubin AST 8 L ALT 14 L Alkaline Phosphatase 74 Troponin I High Sens 130.6 H* Total Protein 5.3 L Albumin 2.6 L Globulin 2.7 Albumin/Globulin Ratio 1.0 TSH 4.66 H Urine Color Urine Clarity Urine pH Ur Specific Jenkins Urine Protein Urine Glucose (UA) Urine Ketones Urine Occult Blood Urine Nitrite Urine Bilirubin Urine Urobilinogen Ur Leukocyte Esterase Urine RBC Urine WBC Ur Squamous Epith Cells Urine Bacteria Urine Mucus COVID-19 (NAM) POC Glucose 03/05/21 03/05/21 03/05/21 09:25 11:46 15:36 WBC RBC Hgb Hct MCV MCH MCHC RDW Std Deviation RDW Coeff of Kate Plt Count MPV Immature Gran % (Auto) Neut % (Auto) Lymph % (Auto) [place] % (Auto) Eos % (Auto) Baso % (Auto) Absolute Neuts (auto) Absolute Lymphs (auto) Nucleated RBC % Differential Comment Atypical Lymphocytes Platelet Estimate RBC Morphology Anisocytosis PT INR APTT 37.3 H D-Dimer Quant (PE/DVT) Sodium Potassium Chloride Carbon Dioxide Anion Gap BUN Creatinine Estim Creat Clear Calc Est GFR (MDRD) Af Amer Est GFR (MDRD) Non-Af BUN/Creatinine Ratio Glucose Lactic Acid Calcium Total Bilirubin Direct Bilirubin AST ALT Alkaline Phosphatase Troponin I High Sens 156.4 H* Total Protein Albumin Globulin Albumin/Globulin Ratio TSH Urine Color Urine Clarity Urine pH Ur Specific Jenkins Urine Protein Urine Glucose (UA) Urine Ketones Urine Occult Blood Urine Nitrite Urine Bilirubin Urine Urobilinogen Ur Leukocyte Esterase Urine RBC Urine WBC Ur Squamous Epith Cells Urine Bacteria Urine Mucus COVID-19 (NAM) POC Glucose 96 Micro: Microbiology 03/04/21 21:20 Blood Culture (Wb) - Anticubital Right Blood Culture - Preliminary 03/04/21 21:16 Blood Culture (Wb) - Left Forearm Blood Culture - Preliminary 03/04/21 22:20 Urine, Catheterized Urine Culture - Preliminary Culture exhibits no growth. 03/04/21 23:10 Mucosa - Nose SARS-CoV-2 Antigen (Rapid) - Final Cardiology Labs/Tests 03/04/21 21:16: Lactic Acid 1.0 03/04/21 21:20: WBC 11.7 H, RBC 4.34 L, Hgb 13.2, Hct 37.7 L, MCV 86.9, MCH 30.4, MCHC 35.0, Plt Count 136 L, MPV 8.8, Immature Gran % (Auto) 1.000 H, Neut % (Auto) 89.2 H, Lymph % (Auto) 3.5 L, [place] % (Auto) 6.1, Eos % (Auto) 0.0, Baso % (Auto) 0.2, Absolute Neuts (auto) 10.5 H, Nucleated RBC % 0 03/04/21 21:20: Sodium 125 L, Potassium 3.9, Chloride 93 L, Carbon Dioxide 24.0, Anion Gap 8, BUN 12, Creatinine 0.64 L, Est GFR (MDRD) Af Amer 164, Est GFR (MDRD) Non-Af 136, BUN/Creatinine Ratio 18.8, Glucose 103, Calcium 8.3 L 03/04/21 21:20: Total Bilirubin 1.20 H, Direct Bilirubin 0.46 H 03/04/21 22:20: Urine Color Yellow, Urine Clarity Sl. Cloudy, Urine pH 7.0, Ur Specific Jenkins 1.010, Urine Protein 15 H, Urine Glucose (UA) Normal, Urine Ketones 50 H, Urine Occult Blood Negative, Urine Nitrite Negative, Urine Bilirubin Negative, Urine Urobilinogen 8 H, Ur Leukocyte Esterase 25 H, Urine RBC 0 SEEN, Urine WBC 0-5 SEEN 03/04/21 22:45: PT 16.6 H, INR 1.4 03/05/21 05:14: WBC 9.3, RBC 4.05 L, Hgb 12.2 L, Hct 35.8 L, MCV 88.4, MCH 30.1, MCHC 34.1, Plt Count 131 L, MPV 9.0, Immature Gran % (Auto) 0.900, Neut % (Auto) 82.5 H, Lymph % (Auto) 6.5 L, [place] % (Auto) 9.9, Eos % (Auto) 0.0, Baso % (Auto) 0.2, Absolute Neuts (auto) 7.6, Nucleated RBC % 0 03/05/21 05:24: PT 17.7 H, INR 1.5, D-Dimer Quant (PE/DVT) 0.67 H* 03/05/21 05:24: Sodium 133 L, Potassium 3.8, Chloride 103, Carbon Dioxide 23.0, Anion Gap 7, BUN 8, Creatinine 0.53 L, Est GFR (MDRD) Af Amer 204, Est GFR (MDRD) Non-Af 169, BUN/Creatinine Ratio 15.1, Glucose 106, Calcium 8.0 L, Total Bilirubin 0.90 03/05/21 11:46: APTT 37.3 H Rhythm: Normal sinus EKG: Sinus tachycardia ECHO: Normal LV systolic function Radiography Diagnostic Testing: Radiology Impression Abdomen/Pelvis CT 03/04/21 22:30 IMPRESSION: Significant constipation. Unremarkable appendix. No acute obstruction of the kidneys. Enlarged prostate with calcifications Electronically Signed: Shyam Cohen DO at 1:00 EDT Tel , Service support , Chest X-Ray 03/05/21 01:15 IMPRESSION: Normal x-ray examination of the chest. Electronically Signed: Shyam Cohen DO at 2:15 EDT Tel , Service support , Echocardiogram 03/05/21 04:22 Interpretation Summary The estimated ejection fraction is EF calcuated 66% . Ordering Physician: Amadeo Rucker Referring Physician: Mihir Anderson Performed By: Mylene Breen, RDCS, RVT Brain CT 03/05/21 15:39 IMPRESSION: Positive for acute subarachnoid hemorrhage in sulci of the right occipital lobe. N.B. : The above Results were Read Back by Mehdi Valencia MD to [facility] and understanding confirmed on 03/05/2021 16:06:04 (ET). Electronically Signed: Mehdi Valencia MD at 16:07 EDT Tel , Service support , ADDENDUM: 03/05/21 1614
--- NOTE | 2021-03-05 16:37 | DS.PCM_ITS ---
Providers Date of Admission: 03/05/21 Primary Care Physician: Mehdi Anderson, SUNDEEP-C Consultations 03/05/21 05:37 Consult: Cardiology Routine Consulting Provider: Tyson Leos Reason for Consult: elevated troponin EMERGENT Consult: No MD Notified: Yes Date Notified: 03/05/21 Time Notified: 07:38 Method of Notification: Text Reason For Visit: FEVER, HYPONATREMIA Diagnosis Discharge Diagnosis (1) Hyponatremia: Status: Acute Code(s): E87.1 - Hypo-osmolality and hyponatremia (2) SIRS (systemic inflammatory response syndrome): Status: Acute Code(s): R65.10 - Systemic inflammatory response syndrome (SIRS) of non-infectious origin without acute organ dysfunction (3) Ketoacidosis: Status: Acute Code(s): E87.2 - Acidosis Medications at Discharge Home Medications meloxicam 15 mg PO DAILY 03/04/21 sulfamethoxazole-trimethoprim 1 tab PO DAILY 03/04/21 tamsulosin 0.4 mg PO DAILY 03/04/21 Hospital Course Operations None Procedures 2-D Echocardiogram Summary of Care Provided Minutes Spent on Discharge: 60 Hospital Course: Per HPI: NEERU GIBSON, is a 61 M who presents presents with fever. Patient was having fever at home but is also noted to be tachycardic. Is been going on for couple days. Had not been feeling well. Patient is not very forthcoming historian and was woken up so he states that he cannot recall why he is specifically here so much the history is obtained through the emergency room physician. Patient was having a fever when he initially presented at 39.4 Celsius but that went down to 37 and he was notably tachycardic when initially presented with a heart rate in the 130s and was t achypneic at 26. His urinalysis was unremarkable for infection but did show positive ketones. Hospital Course: 61-year-old male presented to the hospital with fevers I been going on throughout the last 4 days as well as a recent history of UTI. He was diagnosed with UTI about 2 weeks ago and started on antibiotic however he was not feeling any better and so he saw a different physician who prescribed him a different antibiotic, what the 2 antibiotics were, 1 appears to have been Bactrim. He also states that the night prior to admission he had some dyspnea though he did not have any dyspnea on the day of admission. He did not have any chest pain however on admission he was found to have an elevated D-dimer to 0.67 and elevated troponins. Cardiology was consulted and he was given a dose of therapeutic Lovenox at 5 AM they transitioned him to heparin drip at 3 PM and this ran for about 30 minutes prior to having a stroke alert called. CT scan with contrast of his abdomen was obtained and because of that no contrasted study could be done and he wanted to be worked up for a PE as well given the elevated D-dimer however he cannot have another contrasted study until midnight tonight since his previous contrasted study was done midnight yesterday. At 330 stroke alert was called secondary to new onset weakness on his right lower extremity. The last time anyone got him up to walk was between 1030 and 11 and at which point he was little bit weak but he could move his legs. He was not complaining of any heaviness to his leg until 330 when they got him up to go to the bathroom, regardless he is not appropriate for TPA secondary to the subarachnoid hemorrhage as well as the therapeutic Lovenox and the heparin drip he has been on. Upon my evaluation he could not move his leg and we had to move his leg for him to ambulate and back to the bed at which point the stroke alert was officially called his NIH was of 3 based on having some activity against gravity and ataxia in the right lower extremity. 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 Because of his heparin and the Lovenox he was given 10 mg of protamine prior to transfer. His blood pressures have been stable below 140 systolic and the situation was explained to him and he was okay with being transferred to [facility]. Of note blood cultures did come back positive with gram-negative rods and he was started on Zosyn, he did have a slight leukocytosis on admission to 11.7 however that was down to 9.3 today without any antibiotics. I will attempt to get a hold of the [facility] team once culture data becomes available. Physical Exam Const alert, oriented x3 and no apparent distress General Appearance: cooperative HEENT normocephalic Mouth: dry mucous membranes Eyes PERRL, EOMs intact bilaterally and conjunctivae normal Neck supple and no JVD Resp normal respiratory effort, no retractions, no use of accessory muscles and clear to auscultation bilaterally Auscultation: Negative for crackles, rales, rhonchi or wheezes Cardio regular rate, regular rhythm, S1 normal heart sound, S2 normal heart sound and no murmurs GI soft to palpation, non-tender, non-distended and hepatosplenomegaly Extremity no clubbing, cyanosis or edema Skin no rashes or lesions noted Neuro CN's II-XII intact bilaterally and no sensory deficits noted Neuro Narrative: Minimal movement in his right lower extremity against gravity Sensorium / Orientation: awake and alert Coordination / Balance: Negative for [id number] test normal Speech: speech normal Psych Appearance: appropriate Mood & Affect: flat affect Weight / BMI Weight Weight: 146 lb 9.718 oz Body Mass Index (BMI) 22.9 ABG / Lab / Microbiology Data Result Diagrams: 03/05/21 05:14 03/05/21 05:24 Laboratory: Laboratory Results - last 24 hr 03/04/21 03/04/21 03/04/21 21:16 21:20 21:20 WBC 11.7 H RBC 4.34 L Hgb 13.2 Hct 37.7 L MCV 86.9 MCH 30.4 MCHC 35.0 RDW Std Deviation 41.8 RDW Coeff of Kate 13.2 Plt Count 136 L MPV 8.8 Immature Gran % (Auto) 1.000 H Neut % (Auto) 89.2 H Lymph % (Auto) 3.5 L [place] % (Auto) 6.1 Eos % (Auto) 0.0 Baso % (Auto) 0.2 Absolute Neuts (auto) 10.5 H Absolute Lymphs (auto) 0.41 L Nucleated RBC % 0 Differential Comment SEE COMMENT Atypical Lymphocytes Platelet Estimate SLT DEC RBC Morphology N CHROM Anisocytosis RARE PT INR APTT D-Dimer Quant (PE/DVT) Sodium 125 L Potassium 3.9 Chloride 93 L Carbon Dioxide 24.0 Anion Gap 8 BUN 12 Creatinine 0.64 L Estim Creat Clear Calc 114.76 Est GFR (MDRD) Af Amer 164 Est GFR (MDRD) Non-Af 136 BUN/Creatinine Ratio 18.8 Glucose 103 Lactic Acid 1.0 Calcium 8.3 L Total Bilirubin Direct Bilirubin AST ALT Alkaline Phosphatase Troponin I High Sens Total Protein Albumin Globulin Albumin/Globulin Ratio TSH Urine Color Urine Clarity Urine pH Ur Specific [place] Urine Protein Urine Glucose (UA) Urine Ketones Urine Occult Blood Urine Nitrite Urine Bilirubin Urine Urobilinogen Ur Leukocyte Esterase Urine RBC Urine WBC Ur Squamous Epith Cells Urine Bacteria Urine Mucus COVID-19 (NAM) POC Glucose 03/04/21 03/04/21 03/04/21 21:20 22:20 22:45 WBC RBC Hgb Hct MCV MCH MCHC RDW Std Deviation RDW Coeff of Kate Plt Count MPV Immature Gran % (Auto) Neut % (Auto) Lymph % (Auto) [place] % (Auto) Eos % (Auto) Baso % (Auto) Absolute Neuts (auto) Absolute Lymphs (auto) Nucleated RBC % Differential Comment Atypical Lymphocytes Platelet Estimate RBC Morphology Anisocytosis PT 16.6 H INR 1.4 APTT D-Dimer Quant (PE/DVT) Sodium Potassium Chloride Carbon Dioxide Anion Gap BUN Creatinine Estim Creat Clear Calc Est GFR (MDRD) Af Amer Est GFR (MDRD) Non-Af BUN/Creatinine Ratio Glucose Lactic Acid Calcium Total Bilirubin 1.20 H Direct Bilirubin 0.46 H AST 9 L ALT 16 Alkaline Phosphatase 83 Troponin I High Sens Total Protein 6.0 L Albumin 3.1 L Globulin 2.9 Albumin/Globulin Ratio TSH Urine Color Yellow Urine Clarity Sl. Cloudy Urine pH 7.0 Ur Specific [place] 1.010 Urine Protein 15 H Urine Glucose (UA) Normal Urine Ketones 50 H Urine Occult Blood Negative Urine Nitrite Negative Urine Bilirubin Negative Urine Urobilinogen 8 H Ur Leukocyte Esterase 25 H Urine RBC 0 SEEN Urine WBC 0-5 SEEN Ur Squamous Epith Cells 0-5 SEEN Urine Bacteria 0 SEEN Urine Mucus 0 SEEN COVID-19 (NAM) POC Glucose 03/05/21 03/05/21 03/05/21 01:40 03:25 05:14 WBC 9.3 RBC 4.05 L Hgb 12.2 L Hct 35.8 L MCV 88.4 MCH 30.1 MCHC 34.1 RDW Std Deviation 43.4 RDW Coeff of Kate 13.3 Plt Count 131 L MPV 9.0 Immature Gran % (Auto) 0.900 Neut % (Auto) 82.5 H Lymph % (Auto) 6.5 L [place] % (Auto) 9.9 Eos % (Auto) 0.0 Baso % (Auto) 0.2 Absolute Neuts (auto) 7.6 Absolute Lymphs (auto) 0.60 L Nucleated RBC % 0 Differential Comment SCANNED Atypical Lymphocytes RARE Platelet Estimate RBC Morphology Anisocytosis PT INR APTT D-Dimer Quant (PE/DVT) Sodium Potassium Chloride Carbon Dioxide Anion Gap BUN Creatinine Estim Creat Clear Calc Est GFR (MDRD) Af Amer Est GFR (MDRD) Non-Af BUN/Creatinine Ratio Glucose Lactic Acid Calcium Total Bilirubin Direct Bilirubin AST ALT Alkaline Phosphatase Troponin I High Sens 145.4 H* Total Protein Albumin Globulin Albumin/Globulin Ratio TSH Urine Color Urine Clarity Urine pH Ur Specific [place] Urine Protein Urine Glucose (UA) Urine Ketones Urine Occult Blood Urine Nitrite Urine Bilirubin Urine Urobilinogen Ur Leukocyte Esterase Urine RBC Urine WBC Ur Squamous Epith Cells Urine Bacteria Urine Mucus COVID-19 (NAM) Not Detected POC Glucose 03/05/21 03/05/21 03/05/21 05:24 05:24 05:24 WBC RBC Hgb Hct MCV MCH MCHC RDW Std Deviation RDW Coeff of Kate Plt Count MPV Immature Gran % (Auto) Neut % (Auto) Lymph % (Auto) [place] % (Auto) Eos % (Auto) Baso % (Auto) Absolute Neuts (auto) Absolute Lymphs (auto) Nucleated RBC % Differential Comment Atypical Lymphocytes Platelet Estimate RBC Morphology Anisocytosis PT 17.7 H INR 1.5 APTT D-Dimer Quant (PE/DVT) 0.67 H* Sodium 133 L Potassium 3.8 Chloride 103 Carbon Dioxide 23.0 Anion Gap 7 BUN 8 Creatinine 0.53 L Estim Creat Clear Calc 138.57 Est GFR (MDRD) Af Amer 204 Est GFR (MDRD) Non-Af 169 BUN/Creatinine Ratio 15.1 Glucose 106 Lactic Acid Calcium 8.0 L Total Bilirubin 0.90 Direct Bilirubin AST 8 L ALT 14 L Alkaline Phosphatase 74 Troponin I High Sens 130.6 H* Total Protein 5.3 L Albumin 2.6 L Globulin 2.7 Albumin/Globulin Ratio 1.0 TSH 4.66 H Urine Color Urine Clarity Urine pH Ur Specific [place] Urine Protein Urine Glucose (UA) Urine Ketones Urine Occult Blood Urine Nitrite Urine Bilirubin Urine Urobilinogen Ur Leukocyte Esterase Urine RBC Urine WBC Ur Squamous Epith Cells Urine Bacteria Urine Mucus COVID-19 (NAM) POC Glucose 03/05/21 03/05/21 03/05/21 09:25 11:46 15:36 WBC RBC Hgb Hct MCV MCH MCHC RDW Std Deviation RDW Coeff of Kate Plt Count MPV Immature Gran % (Auto) Neut % (Auto) Lymph % (Auto) [place] % (Auto) Eos % (Auto) Baso % (Auto) Absolute Neuts (auto) Absolute Lymphs (auto) Nucleated RBC % Differential Comment Atypical Lymphocytes Platelet Estimate RBC Morphology Anisocytosis PT INR APTT 37.3 H D-Dimer Quant (PE/DVT) Sodium Potassium Chloride Carbon Dioxide Anion Gap BUN Creatinine Estim Creat Clear Calc Est GFR (MDRD) Af Amer Est GFR (MDRD) Non-Af BUN/Creatinine Ratio Glucose Lactic Acid Calcium Total Bilirubin Direct Bilirubin AST ALT Alkaline Phosphatase Troponin I High Sens 156.4 H* Total Protein Albumin Globulin Albumin/Globulin Ratio TSH Urine Color Urine Clarity Urine pH Ur Specific [place] Urine Protein Urine Glucose (UA) Urine Ketones Urine Occult Blood Urine Nitrite Urine Bilirubin Urine Urobilinogen Ur Leukocyte Esterase Urine RBC Urine WBC Ur Squamous Epith Cells Urine Bacteria Urine Mucus COVID-19 (NAM) POC Glucose 96 Microbiology: Microbiology 03/04/21 21:20 Blood Culture - Preliminary Blood Culture (Wb) - Anticubital Right 03/04/21 21:16 Blood Culture - Preliminary Blood Culture (Wb) - Left Forearm 03/04/21 22:20 Urine Culture - Preliminary Urine, Catheterized Culture exhibits no growth. 03/04/21 23:10 SARS-CoV-2 Antigen (Rapid) - Final Mucosa - Nose Microbiology 03/04/21 21:20 Blood Culture (Wb) - Anticubital Right Blood Culture - Preliminary 03/04/21 21:16 Blood Culture (Wb) - Left Forearm Blood Culture - Preliminary 03/04/21 22:20 Urine, Catheterized Urine Culture - Preliminary Culture exhibits no growth. 03/04/21 23:10 Mucosa - Nose SARS-CoV-2 Antigen (Rapid) - Final Radiography Diagnostic Testing: Radiology Impression Abdomen/Pelvis CT 03/04/21 22:30 IMPRESSION: Significant constipation. Unremarkable appendix. No acute obstruction of the kidneys. Enlarged prostate with calcifications Electronically Signed: Shyam Cohen DO at 1:00 EDT Tel , Service support , Chest X-Ray 03/05/21 01:15 IMPRESSION: Normal x-ray examination of the chest. Electronically Signed: Shyam Cohen DO at 2:15 EDT Tel , Service support , Echocardiogram 03/05/21 04:22 Interpretation Summary The estimated ejection fraction is EF calcuated 66% . Ordering Physician: Amadeo Rucker Referring Physician: Mihir Anderson Performed By: Mylene Breen, RDCS, RVT Brain CT 03/05/21 15:39 IMPRESSION: Positive for acute subarachnoid hemorrhage in sulci of the right occipital lobe. N.B. : The above Results were Read Back by Mehdi Valencia MD to SIMBA PETERSON and understanding confirmed on 03/05/2021 16:06:04 (ET). Electronically Signed: Mehdi Valencia MD at 16:07 EDT Tel , Service support , ADDENDUM: 03/05/21 1614 IMPRESSION: Positive for acute subarachnoid hemorrhage in sulci of the right occipital lobe. N.B. : The above Results were Read Back by Mehdi Valencia MD to SIMBA PETERSON and understanding confirmed on 03/05/2021 16:06:04 (ET). Electronically Signed: Mehdi Valencia MD at 16:07 EDT Tel , Service support , Meaningful Use Info Meaningful Use Diagnoses (Choose all that apply): None applicable Discharge Plan Admission Admit Date/Time: 03/05/21 03:11 Attending Provider: Simba Peterson Primary Care Provider: Mehdi Anderson NP Consulting Providers: Tyson Leos Discharge Orders/Prescriptions Prescriptions: No Action sulfamethoxazole-trimethoprim 400-80 mg Tablet 1 tab PO DAILY RF: 0 meloxicam 15 mg Tablet 15 mg PO DAILY RF: 0 tamsulosin 0.4 mg Capsule 0.4 mg PO DAILY RF: 0 Referrals / Follow Up: Mehdi Anderson NP, RECEIVING T[employer] OPERATOR-C [Primary Care Provider] - Disposition Discharge Orders: Discharge Patient (Routine); Ordered 03/05/21 Ordered By: Dr. Simba Peterson Charges/Coding Visit Charges OBSV E&M: 27854 Observation care discharge
[2021-03-05 16:57] LABS: Partial Thromboplast Time 34.8 Seconds (24.1-36.2)
--- NOTE | 2021-03-05 18:53 | NURSING ---
pt was taken by helicopter at 1740 to [facility]. Two RN's to transport the pt. report was given. NIH was 3 with no new changes.
== END 2021-03-05 17:54 | disposition short-term general hospital (02) ==
LOC: ED 22:25 → MS3 03-05 03:13 → PCU 03-05 07:00
PROVIDERS: Internal Medicine Interventional Cardiology; Emergency Provider Student in an Organized Health Care Education/Training Program; PCP Nurse Practitioner Family; Visit Provider Family Medicine
DX: E87.1 Hypo-osmolality and hyponatremia (principal); R65.10 Systemic inflammatory response syndrome (SIRS) of non-infectious origin without acute organ dysfunction; I10 Essential (primary) hypertension; E87.2 Acidosis; I60.8 Other nontraumatic subarachnoid hemorrhage; R29.703 NIHSS score 3; Z79.899 Other long term (current) drug therapy; Z79.1 Long term (current) use of non-steroidal anti-inflammatories (NSAID)
CPT/HCPCS: 36415; 70450; 71045; 74177; 80048; 80053; 80076; 81001; 82962; 83605; 84443; 84484; 85025; 85379; 85610; 85730; 87040; 87077; 87086; 87186; 87426; 87635; 93005; 93306; 96361; 96365; 96367; 96372; 97802; 99218; 99285; J7030; Q9967; U0005; A4216; G0378; J3490; U0003